=== PATIENT | male | born 1975 | race Caucasian/White ===

== ENCOUNTER 2019-01-07 20:26 | Emergency (ER) | payer MEDICARE ==
[~2019-01-07] VITALS: Ht 172.7 cm; Wt 159.1 kg
[2019-01-07] MEDS ORDERED: ZOLO100T PO (20:47)
[2019-01-07] MEDS ORDERED: INDE80CA9 PO (20:57)
[2019-01-07] MEDS ORDERED: NIFE20CA PO (20:57)
[2019-01-07 21:41] LABS: BASO # 0.1 10^3/uL (0.0-0.2); BASO % 0.8 % (0.0-1.0); EOS # 0.3 10^3/uL (0.0-0.5); EOS % 3.6 % (0.0-3.0); HEMATOCRIT 46.2 % (42.0-52.0); HEMOGLOBIN 16.8 g/dl (13.5-17.5); LYMPH # 1.6 10^3/uL (1.5-5.0); LYMPH % 19.2 % (24.0-44.0); MEAN CORPUSCULAR HEMOGLOBIN 31.3 pg (27.0-33.0); MEAN CORPUSCULAR HGB CONC 36.4 g/dl (32.0-36.5); MONO # 0.4 10^3/uL (0.0-0.8); MONO % 5.2 % (0.0-5.0); NEUTROPHILS # 5.9 10^3/uL (1.5-8.5); NEUTROPHILS % 69.9 % (36.0-66.0); PLATELET COUNT, AUTOMATED 184 10^3/uL (150-450); RED BLOOD COUNT 5.37 10^6/uL (4.30-6.10); WHITE BLOOD COUNT 8.4 10^3/uL (4.0-10.0)
[2019-01-07 21:43] LABS: BLOOD UREA NITROGEN 7 MG/DL (7-18); CALCIUM LEVEL 9.5 MG/DL (8.5-10.1); CARBON DIOXIDE LEVEL 25 MEQ/L (21-32); CHLORIDE LEVEL 99 MEQ/L (98-107); CK-MB VALUE MASS < 1.0 NG/ML (<3.6); CPK CREATINE PHOSPHOKINASE 37 U/L (39-308); CREATININE FOR GFR 0.84 MG/DL (0.70-1.30); GLOMERULAR FILTRATION RATE > 60.0 (>60); GLUCOSE, FASTING 347 MG/DL (70-100); POTASSIUM SERUM 3.9 MEQ/L (3.5-5.1); SODIUM LEVEL 136 MEQ/L (136-145); TROPONIN I < 0.02 NG/ML (< 0.10)
[2019-01-07] MEDS ORDERED: NIFEdipine 10 MG CAP PO ONE (23:15)
[2019-01-07] MEDS ORDERED: ASPIRIN 81 MG CHEW TABLET PO ONE (23:15)
[2019-01-07] MEDS ORDERED: ISOVUE-370 76% 100ML VIAL (Q9967) As Ordered ONE (23:21)
--- NOTE | 2019-01-08 00:41 | REPVR ---
EXAM: CT Angiography Chest With Contrast EXAM DATE/TIME: 01/07/2019 11:17 PM CLINICAL HISTORY: 43 years old, male; Chest pain; Type not specified; Additional Info: chest pain, palpitations TECHNIQUE: Imaging protocol: Computed tomographic angiography of the chest with intravenous contrast. 3D rendering: MIP reconstructed images were created and reviewed. Radiation optimization: All CT scans at this facility use at least one of these dose optimization techniques: automated exposure control; mA and/or kV adjustment per patient size (includes targeted exams where dose is matched to clinical indication); or iterative reconstruction. Contrast material: ISO; Contrast volume: 75 ml; Contrast route: FOREARM; COMPARISON: CR PORTABLE CHEST X-RAY 01/07/2019 9:28 PM FINDINGS: Limitations: Examination is limited by motion artifact. Pulmonary arteries: Normal. No pulmonary emboli. Aorta: Unremarkable. No aortic aneurysm. No aortic dissection. Tracheobronchial tree: Mild bronchial mucous plugging in the lower lobes bilaterally. Lungs: 4 mm lung nodule in the lateral right middle lobe. No acute consolidation. Pleural space: Unremarkable. No pneumothorax. No pleural effusion. Heart: Unremarkable. No cardiomegaly. No pericardial effusion. Spleen: Splenomegaly. Spleen is not fully imaged on this study however. Lymph nodes: Unremarkable. No enlarged lymph nodes. Bones/joints: Unremarkable. No acute fracture. Soft tissues: Unremarkable. IMPRESSION: 1. Negative for pulmonary embolism. 2. Mild bronchial mucous plugging in the lower lobes bilaterally. 3. Lung nodule in the lateral right middle lobe. For patients at low risk (minimal or absent history of smoking and of other known risk factors), no routine follow-up is indicated. For patients at high risk (history of smoking or of other known risk factors), consider optional CT at 12 months. (attila Mosley., Fleischner Society, 2017) Electronically signed by: Tylor Pike On 01/08/2019 00:40:31 AM
[2019-01-08 03:13] LABS: CK-MB VALUE MASS < 1.0 NG/ML (<3.6); CPK CREATINE PHOSPHOKINASE 40 U/L (39-308); TROPONIN I < 0.02 NG/ML (< 0.10)
[2019-01-08 03:22] VITALS: BP 148/99
--- NOTE | 2019-01-08 08:16 | ECGEPIP ---
[facility] - ED Test Date: 2019-01-07 Pat Name: LUIS KING Department: Room: - Gender: Male [employer]: kg : 1975 Requested By: CHELI Patel Order Number: [id number] Reading MD: Kitty Quiles Measurements Intervals [place] Rate: 108 P: 56 NM: 197 QRS: 67 QRSD: 91 T: 22 QT: 324 QTc: 434 Interpretive Statements SINUS TACHYCARDIA LOW QRS VOLTAGE IN PRECORDIAL LEADS NONSPECIFIC T-WAVE ABNORMALITY ABNORMAL RHYTHM ECG No prior Electronically Signed on 01-08-2019 8:15:16 EDT by Kitty Quiles
--- NOTE | 2019-01-08 09:23 | REP ---
CHEST, SINGLE VIEW: There is no evidence of acute infiltrate. No pleural effusion is seen. The heart is normal in size. The mediastinal silhouette is unremarkable. The visualized osseous structures are intact. IMPRESSION: No acute pulmonary disease. Electronically Signed by Leandro Blue MD 01/08/2019 11:39 A
--- NOTE | 2019-01-08 20:26 | ECGEPIP ---
[facility] - ED Test Date: 2019-01-08 Pat Name: LUIS KING Department: Room: - Gender: Male Supervisor [employer]: : 1975 Requested By: CHELI Patel Order Number: [id number] Reading MD: Kitty Quiles Measurements Intervals [place] Rate: 78 P: 13 GA: 195 QRS: 18 QRSD: 100 T: -6 QT: 358 QTc: 409 Interpretive Statements SINUS RHYTHM LOW QRS VOLTAGE IN PRECORDIAL LEADS NSTTW abnormalities DECREASED RATE 01/07/19 Electronically Signed on 01-08-2019 20:26:31 EDT by Kitty Quiles
--- NOTE | 2019-01-13 12:52 | ED PDOC ---
Post-Departure Follow-Up dr sales and dr sebastian faxed formal report of cta chest for fu Mickey Watters MD Jan 13, 2019 12:51
== END 2019-01-08 04:13 | disposition home or self-care (01) ==
LOC: M ED 20:26
DX: R91.1 Solitary pulmonary nodule (principal); R07.9 Chest pain, unspecified; R00.0 Tachycardia, unspecified; R94.31 Abnormal electrocardiogram [ECG] [EKG]; E11.9 Type 2 diabetes mellitus without complications; I10 Essential (primary) hypertension; Z87.891 Personal history of nicotine dependence; Z79.899 Other long term (current) drug therapy; Z88.0 Allergy status to penicillin
CPT/HCPCS: 71045; 71275; 80048; 82550; 82553; 84484; 85025; 93005; 93041; 94760; 99285; Q9967

== ENCOUNTER → 2024-07-07 | Outpatient (CLI) | payer MEDICARE ==
[~2024-07-07] MED LIST: INDE80CA9 PO; NIFE1CAP2 PO; ZOLO100T PO
[2024-07-07 18:54] LABS: HEMOGLOBIN A1c 5.5 % (4.0-6.0)
[2024-07-07 19:09] LABS: URIC ACID 7.3 MG/DL (3.7-9.2)
[2024-07-07 19:12] LABS: ALBUMIN 4.3 G/DL (3.2-5.2); ALKALINE PHOSPHATASE 71 U/L (40-129); ALT/SGPT 19 U/L (7.0-40); AST/SGOT 10 U/L (<34); BILIRUBIN,TOTAL 0.5 MG/DL (0.3-1.2); BLOOD UREA NITROGEN 15 MG/DL (9-23); CALCIUM LEVEL 9.9 MG/DL (8.5-10.1); CARBON DIOXIDE LEVEL 29 MMOL/L (20-31); CHLORIDE LEVEL 104 MMOL/L (98-107); CHOLESTEROL LEVEL 285 MG/DL (<200); CHOLESTEROL RISK RATIO 7.17 (<5); CREATININE FOR GFR 1.06 MG/DL (0.70-1.30); GLOMERULAR FILTRATION RATE > 60.0 (>60); GLUCOSE, FASTING 95 MG/DL (60-100); HDL CHOLESTEROL 39.7 MG/DL (>40); LDL CHOLESTEROL 193.1 MG/DL (<100); NON-HDL-C 245.3 MG/DL; POTASSIUM SERUM 4.2 MMOL/L (3.5-5.1); SODIUM LEVEL 142 MMOL/L (136-145); TOTAL PROTEIN 7.8 G/DL (5.7-8.2); TRIGLYCERIDES LEVEL 261 MG/DL (<150)
== END ==
LOC: M WUC 12:13
PROVIDERS: ATTEND Internal Medicine
DX: E78.5 Hyperlipidemia, unspecified (principal); E11.9 Type 2 diabetes mellitus without complications; M10.9 Gout, unspecified